=== PATIENT | female | born 1970 | race Caucasian/White ===

== ENCOUNTER 2025-05-03 22:06 | Emergency (ER) | payer MEDICAID, OTHER ==
[2025-05-03 22:53] LABS: #Basophils 0.07 10x3/uL (0.0-0.2); #Eosinophils 0.38 10x3/uL (0.0-0.5); #Monocytes 0.46 10x3/uL (0.0-1.1); #Neutrophils 2.55 10x3/uL (1.5-8.4); %Basophils 1.1 % (0.0-2.0); %Eosinophils 6.2 % (0.0-6.0); %Lymphocytes 43.1 % (18.0-47.0); %Monocytes 7.5 % (0.0-10.0); %Neutrophils 41.9 % (40.0-75.0); Hematocrit 36.1 % (34.9-44.5); Hemoglobin 12.1 g/dL (12.0-15.5); Mean Corpuscular Hemoglobin 33.0 pg (27.0-33.0); Mean Corpuscular Volume 98.4 fL (81.6-98.3); Platelet Count 202 10x3/uL (150-450); Red Blood Cell (RBC) Count 3.67 10x6/uL (3.90-5.03); White Blood Cell (WBC) Count 6.10 10x3/uL (3.5-10.5)
[2025-05-03 23:05] LABS: Anion Gap 9 mmol/L (10-20); Chloride 100 mmol/L (98-107); Globulin 2.9 g/dL (2.4-3.5); Potassium 3.5 mmol/L (3.5-5.1); Sodium 132 mmol/L (136-145)
[2025-05-03 23:11] LABS: Troponin I 0.010 ng/mL (< 0.028)
[2025-05-03 23:34] LABS: ALT (SGPT) 13 U/L (Less than 34); AST (SGOT) 29 U/L (11-34); Albumin 4.1 g/dL (3.1-4.5); Alkaline Phosphatase 94 U/L (40-110); BUN (Urea Nitrogen) 13 mg/dL (9.8-20.1); Bilirubin, Total 0.4 mg/dL (0.3-1.2); Calc. Creatinine Clearance 0 mL/min (70-130); Calcium 8.7 mg/dL (7.8-10.44); Carbon Dioxide 26 mmol/L (22-29); Glucose 91 mg/dL (70-105)
[2025-05-03 23:41] LABS: Glucose, Urine (Dipstick) Normal (Negative); Leukocyte 25 (Negative); Protein, Urine (Dipstick) 15 mg/dl (Neg-Trace); Specific Gravity, Urine 1.005 (1.005-1.030)
[2025-05-03 23:58] LABS: Bacteria/HPF None Seen HPF (None Seen); CAUTI Indications for Culture Pelvic or flank pain; RBC/HPF None Seen HPF (0-3); Urine Culture Reflex No No; WBC/HPF 0-3 HPF (0-3)
== END 2025-05-04 00:47 | disposition home or self-care (01) ==
LOC: CSHERS 22:06
DX: R42 Dizziness and giddiness (principal); R29.700 NIHSS score 0; I50.9 Heart failure, unspecified; F41.9 Anxiety disorder, unspecified; E66.9 Obesity, unspecified
CPT/HCPCS: 71045; 80053; 81001; 84484; 85025; 93005; J3360

== ENCOUNTER 2025-06-16 07:00 | Emergency (ER) | payer MEDICAID, OTHER ==
[2025-06-16] MEDS ORDERED: HYDROcodone/Acetaminophen 5/325 mg Tablet ONE (07:46)
[2025-06-16] MEDS ORDERED: Bacitracin 1 PK ONE (09:21)
== END 2025-06-16 10:43 | disposition home or self-care (01) ==
LOC: CSHERS 07:00
DX: S80.212A Abrasion, left knee, initial encounter (principal); S80.211A Abrasion, right knee, initial encounter; S50.312A Abrasion of left elbow, initial encounter; M79.674 Pain in right toe(s); M25.511 Pain in right shoulder; M25.512 Pain in left shoulder; R51.9 Headache, unspecified; M79.7 Fibromyalgia; W01.198A Fall on same level from slipping, tripping and stumbling with subsequent striking against other object, initial encounter
CPT/HCPCS: 99283